=== PATIENT | female | born 1980 | race Caucasian/White ===

== ENCOUNTER 2016-11-29 05:58 | Day surgery (SDC) | payer BC ==
[~2016-11-29] VITALS: Ht 172.7 cm; Wt 90.0 kg
[~2016-11-29 05:58] MED LIST: CARB15DR50 BOTH EARS
[2016-11-29 06:42] VITALS: Ht 172.7 cm; Wt 90.0 kg
[2016-11-29] MEDS ORDERED: BIRTH CONTROL (06:51)
[2016-11-29 07:13] VITALS: BP 113/69; PULSE 68; RESP 15
[2016-11-29] MEDS ORDERED: FENTAnyl 50 MCG/ML VIAL ONE (07:43)
[2016-11-29] MEDS ORDERED: MIDAZOLAM 1 MG/ML 2 ML INJ ONE ×2 (07:43)
--- NOTE | 2016-11-29 07:46 | OPPN ---
Date/Time of Note Date/Time of Note DATE: 11/29/16 TIME: 07:45 Operative Report Preoperative Diagnosis Chronic heartburn Postoperative Diagnosis Hiatal hernia Reflux esophagitis with erosions Gastritis Operation/Procedure Performed Esophagogastroduodenoscopy and biopsy Provider: ALEJANDRO TIM MD Anesthesia Type: moderate sedation Estimated blood loss: none Transfusion Required: no Specimens Gastric mucosal biopsy Grafts/Implants: none Complications: no ALEJANDRO TIM MD Nov 29, 2016 07:46
--- NOTE | 2016-11-29 08:08 | GILP ---
DATE OF PROCEDURE: 11/29/2016 PROCEDURE PERFORMED: Esophagogastroduodenoscopy and biopsy. SURGEON: Jaswant Nolen MD. PREOPERATIVE DIAGNOSIS: Chronic heartburn. POSTOPERATIVE DIAGNOSES: 1. Hiatal hernia. 2. Reflux esophagitis with erosions. 3. Gastritis with erosions. 4. Gastric mucosal biopsies were taken for Helicobacter pylori test. INDICATION: Ms. Lenore Wade is a at 36-year-old female patient who had chronic heartburn not responding to therapy. The patient was scheduled for endoscopic examination for further evaluation. The procedure and possible complications were well explained to the patient. She understood and consented to the procedure. DESCRIPTION OF PROCEDURE: Under the influence of fentanyl and Versed, the gastroscope was carefully introduced into the esophagus. Under direct vision, it was advanced to the stomach, into the pylorus, into the duodenal bulb, and descending duodenum. FINDINGS: Esophagus: The patient had a hiatal hernia with reflux esophagitis and erosions. Stomach: The patient had gastritis. Gastric mucosal biopsies were taken for H pylori test. Duodenum was normal. She tolerated the procedure very well. There was no complication from the procedure. At the end of procedure, she was awake with stable vital signs and she was discharged home in the care of her family. IMPRESSION: Please see postop diagnoses. PLAN: 1. Nexium 24 hours p.o. in the morning. 2. Zantac 300 mg p.o. at bedtime. 3. Await Helicobacter pylori test report. Dictated By: MD CLAUDIA Wagner/vaibhav/daily /Document#: [id number]
== END 2016-11-29 09:25 | disposition home or self-care (01) ==
LOC: GIL 05:58
PROVIDERS: ATTEND Internal Medicine Gastroenterology
DX: K44.9 Diaphragmatic hernia without obstruction or gangrene (principal); K21.0 Gastro-esophageal reflux disease with esophagitis; K29.60 Other gastritis without bleeding
CPT/HCPCS: 43239; 84703; 87081; J2250; J3010; Z7610

== ENCOUNTER 2018-09-04 17:21 | Emergency (ER) | payer BC ==
[~2018-09-04] VITALS: Ht 175.3 cm; Wt 92.0 kg
[~2018-09-04 17:21] MED LIST changes: +BIRTH CONTROL; -CARB15DR50 BOTH EARS
[2018-09-04 17:31] VITALS: BP 142/69; PULSE 81; RESP 19; Ht 175.3 cm; Wt 92.0 kg
--- NOTE | 2018-09-04 18:09 | ERD ---
ER Documentation Chief Complaint Chief Complaint left ear pain HPI 37-year-old female, previously healthy, presents the emergency department, complaining of bilateral ear clogging sensation that during the last 3 days is been getting worse, predominantly on the left side. The patient denies fever, no chills, no headache, no sore throat. She reports history of ceruminosis. ROS All systems reviewed and are negative except as per history of present illness. Medications Home Meds Reported Medications [ Control] No Conflict Check 11/29/16 Allergies Allergies: Coded Allergies: No Known Allergy (Unverified , 06/24/14) PMhx/Soc History of Surgery: Yes (OVARIAN CYST REMOVED) Anesthesia Reaction: No Hx Neurological Disorder: No Hx Respiratory Disorders: No Hx Cardiac Disorders: No Hx Psychiatric Problems: No Hx Miscellaneous Medical Probl: No Hx Alcohol Use: Yes (2X WEEK WINE) Hx Substance Use: No Hx Tobacco Use: No FmHx Family History: No diabetes, No coronary disease Physical Exam Vitals Vital Signs Date Temp Pulse Resp B/P (MAP) Pulse Ox O2 O2 Flow FiO2 Time Delivery Rate 09/04/18 97.8 81 19 142/69 96 17:31 (93) Physical Exam Patient alert, oriented, vital signs stable. HEENT: Normocephalic, atraumatic. EYES: PERRLA, EOMI, Sclera and conjunctiva appear normal. EARS: Bilateral cerumen impaction. THROAT: Erythematous oropharynx. NECK: Supple, No lymphadenopathy. Full ROM without pain or tenderness. HEART: RRR, no rubs, murmurs, clicks or gallops. LUNGS: Clear to auscultation. ABDOMEN: Soft, non-tender without masses or hepatosplenomegaly. EXTREMITIES: No edema bilaterally. BACK: Full ROM, no deformity, normal back exam NEURO: Cranial nerves grossly intact, no motor or sensory deficit Procedures/MDM Vital signs stable, differential diagnosis include but not limited to: infection bacterial/viral/fungal. Tonsillitis, eustachian dysfunction, allergies, foreign body, cholesteatoma. Less likely mastoiditis, malignant otitis, meningitis. Physical examination and clinical presentation consistent most likely with bilateral cerumen impaction, successfully removed in the emergency department. During the ED course the patient remained stable, no new complaints. Clinical impression discussed with the patient who agrees with management. The patient is stable to be treated outpatient and will be discharged home with a Rx for Cortisporin. Some side effects of prescribed medications (headache, rash, nausea, vomiting, diarrhea, interactions with other medications) were reviewed. The patient was instructed to follow up with the primary care provider in the next 48h. If symptoms persist, worsen or new symptoms develop, then patient should return to the ED immediately. Disclaimer: Inadvertent spelling and grammatical errors are likely due to EHR/dictation software use and do not reflect on the overall quality of patient care. Also, please note that the electronic time recorded on this note does not necessarily reflect the actual time of the patient encounter. Departure Diagnosis: Primary Impression: Bilateral impacted cerumen Condition: Stable Additional Instructions: Thank you very much for allowing us to participate in your care. Your health and safety is our top priority at [facility]. The evaluation in the emergency department has been done to rule out an acute emergency. Chronic, rcu-qldx-ddclnbgnyck conditions may have not been evaluated; therefore, you need to follow up with a primary care provider in the next 48h. If symptoms persist, worsen or new symptoms develop, then patient should return to the ED immediately. Call your primary care doctor TOMORROW for an appointment during the next 2-4 days and bring all the information provided. Have prescriptions filled and follow precisely the directions on the label. If the symptoms get worse and your provider is unavailable, return to the Emergency Department immediately. ELIZABETH CROSS MD Sep 04, 2018 18:09
[2018-09-04] MEDS ORDERED: NPH10OT LEFT EAR (19:10)
== END 2018-09-04 19:29 | disposition home or self-care (01) ==
LOC: FTE 17:21
DX: H61.23 Impacted cerumen, bilateral (principal)
CPT/HCPCS: 99282